=== PATIENT | female | born 1960 | race Caucasian/White ===

== ENCOUNTER 2020-05-13 17:31 | Observation (INO) | payer BC ==
[~2020-05-13] VITALS: Ht 170.2 cm; Wt 96.0 kg
[~2020-05-13 17:31] MED LIST: LIPITOR; LIPITOR PO; MULTIVITAMIN PO; NKHM; PREMARIN PO
[2020-05-13 17:33] VITALS: BP 190/110
[2020-05-13 17:50] VITALS: BP 187/99
[2020-05-13 18:05] VITALS: BP 148/91
[2020-05-13 18:55] VITALS: BP 148/91
[2020-05-13 21:31] LABS: BASO % 0.3 % (0.0-1.0); EOS # 0.1 10*3/uL (0.0-0.4); EOS % 0.6 % (1.0-4.0); HEMATOCRIT 43.1 % (37.0-47.0); LYMPH # 2.9 10*3/uL (1.3-4.4); LYMPH % 23.8 % (27.0-41.0); MEAN CELL VOLUME 98.9 fl (81.0-99.0); MEAN CORPUSCULAR HGB 32.8 pg (27.0-31.0); MEAN CORPUSCULAR HGB CONC 33.2 g/dl (33.0-37.0); MEAN PLATELET VOLUME 10.4 fl (9.6-12.3); MONO # 0.6 10*3/uL (0.1-1.0); NEUT # 8.7 10*3/uL (2.3-7.9); PLATELET COUNT AUTOMATED 231 10*3/uL (130-400); RED BLOOD COUNT 4.36 10*6/uL (4.10-5.10); RED CELL DISTRI WIDTH 12.1 % (0-14.5); WHITE BLOOD COUNT 12.4 10*3/uL (4.8-10.8)
[2020-05-13 21:40] LABS: INTERNATIONAL NORM RATIO 1.1 (2.0-3.5)
[2020-05-13 21:47] LABS: ALKALINE PHOSPHATASE 99 U/L (45-117); BUN 13 mg/dl (7-24); CHLORIDE 107 mmol/L (98-107); CREATININE 0.79 mg/dL (0.55-1.02); POTASSIUM 3.6 mmol/L (3.5-5.1); SGOT/AST 37 IU/L (3-35); SGPT/ALT 66 U/L (12-78); SODIUM 140 mmol/L (136-145); TOTAL PROTEIN 7.2 gm/dL (6.4-8.2)
[2020-05-13 22:45] VITALS: BP 153/82
[2020-05-13] MEDS ORDERED: LEVOTHYROXINE50 MC1 PO (23:01)
[2020-05-13] MEDS ORDERED: GLUCOPHAGE1000 MG PO (23:03)
[2020-05-13] MEDS ORDERED: GABAPENTIN100 M2 PO (23:03)
[2020-05-13] MEDS ORDERED: VITAMIN D31250 MC1 PO (23:05)
[2020-05-14] VITALS: BP 153/82
[2020-05-14 08:00] VITALS: BP 122/68
[2020-05-14 12:00] VITALS: BP 134/74
[2020-05-14 16:00] VITALS: BP 138/74
[2020-05-14 20:00] VITALS: BP 136/73
[2020-05-15] VITALS (10 sets, daily range): BP systolic 131–166; BP diastolic 52–92
[2020-05-16] VITALS: BP 124/75
[2020-05-16 08:00] VITALS: BP 150/73
== END 2020-05-16 11:40 | disposition home or self-care (01) ==
LOC: ED 17:31 → 5E 21:43 → EDHOLD 21:43 → 5E 21:43
PROVIDERS: Emergency Medicine; ADMIT Internal Medicine; ATTEND Internal Medicine
DX: S82.851A Displaced trimalleolar fracture of right lower leg, initial encounter for closed fracture (principal); S93.431A Sprain of tibiofibular ligament of right ankle, initial encounter; E03.9 Hypothyroidism, unspecified; W01.0XXA Fall on same level from slipping, tripping and stumbling without subsequent striking against object, initial encounter; Y93.89 Activity, other specified; Y92.89 Other specified places as the place of occurrence of the external cause

== ENCOUNTER → 2020-05-29 | Outpatient (CLI) | payer BC ==
[~2020-05-29] MED LIST changes: +GABAPENTIN100 M2 PO; +GLUCOPHAGE1000 MG PO; +LEVOTHYROXINE50 MC1 PO; +VITAMIN D31250 MC1 PO
== END | disposition home or self-care (01) ==
LOC: ORTHO 00:12
PROVIDERS: ATTEND Orthopaedic Surgery
DX: S82.851A Displaced trimalleolar fracture of right lower leg, initial encounter for closed fracture (principal); X58.XXXA Exposure to other specified factors, initial encounter; Y93.89 Activity, other specified; Y92.89 Other specified places as the place of occurrence of the external cause; Y99.8 Other external cause status

== ENCOUNTER → 2020-06-26 | Outpatient (CLI) | payer BC | END | disposition home or self-care (01) | LOC: ORTHO 00:28 | PROVIDERS: ATTEND Orthopaedic Surgery | DX: S82.851D Displaced trimalleolar fracture of right lower leg, subsequent encounter for closed fracture with routine healing (principal); X58.XXXD Exposure to other specified factors, subsequent encounter ==

== ENCOUNTER → 2020-08-07 | Outpatient (CLI) | payer BC | END | disposition home or self-care (01) | LOC: ORTHO 00:29 | PROVIDERS: ATTEND Orthopaedic Surgery | DX: S82.851D Displaced trimalleolar fracture of right lower leg, subsequent encounter for closed fracture with routine healing (principal); X58.XXXD Exposure to other specified factors, subsequent encounter ==

== ENCOUNTER → 2020-09-18 | Outpatient (CLI) | payer BC | END | disposition home or self-care (01) | LOC: ORTHO 01:26 | PROVIDERS: ATTEND Orthopaedic Surgery | DX: S82.851D Displaced trimalleolar fracture of right lower leg, subsequent encounter for closed fracture with routine healing (principal); R60.0 Localized edema; X58.XXXD Exposure to other specified factors, subsequent encounter ==

== ENCOUNTER → 2020-10-23 | Outpatient (CLI) | payer BC | END | disposition home or self-care (01) | LOC: RAD 10-05 14:00 | PROVIDERS: ATTEND Orthopaedic Surgery | DX: S82.851D Displaced trimalleolar fracture of right lower leg, subsequent encounter for closed fracture with routine healing (principal); M85.871 Other specified disorders of bone density and structure, right ankle and foot; N95.9 Unspecified menopausal and perimenopausal disorder ==

== ENCOUNTER → 2021-04-16 | Outpatient (CLI) | payer BC | END | disposition home or self-care (01) | LOC: COVID19 15:37 | PROVIDERS: ATTEND Internal Medicine | DX: U07.1 COVID-19 (principal) ==